=== PATIENT | female | born 1990 | race Caucasian/White ===

== ENCOUNTER 2016-12-12 09:14 | Emergency (ER) | payer BC ==
--- NOTE | ~2016-12-12 | CR181 ---
[facility] A Service of [facility] RADIOLOGY TEXT RESULTS PATIENT: PATRICIA WHATLEY LOCATION: [facility] : [birth year] UNIT #: [id number] AGE: [address]: Mony Rene APRN SEX: F ORDER DR: [id number] [facility] [address] [facility] [address]. [place], [place] [address] [id number] MR#: [id number] Acc #: [id number] NAME: PATRICIA WHATLEY. : 1990 SEX: F STUDY DATE/TIME: 12/12/2016 9:13 UNIT: [facility] ROOM: STUDY DESCRIPTION: CR Lumbar Spine 2 or 3 Views Attending Physician: Mony Rene A.P.R.N. Ordering Physician: Ed Marcelino Mcmahon M.D. Primary Care Physician: No Primary Care Physician MEDICAL IMAGING REPORT This report is preliminary unless electronic signature is present EXAM Lumbar spine series dated 12/12/2016. COMPARISON Lumbar spine series dated 12/16/2012. HISTORY Low back pain since yesterday after patient bent over to last picker stuff. FINDINGS 3 views of the lumbar spine were obtained. AP and lateral projections of the lumbar segment show good mineralization of both anterior and posterior elements. They are all anatomically normal without indication of fracture, dislocation, or malignant change of a sclerotic or lytic type. There is no congenital defect noted. The sacroiliac joints are normal. IMPRESSION Normal lumbar spine. Dictated by... Benjamin Moffett M.D. THIS IS AN ELECTRONICALLY VERIFIED REPORT Benjamin Moffett M.D. at 12/13/2016 2:04 PM CPR/tmw TD: 12/12/2016 09:59 JOB #: [id number] [facility] A Service of [facility] RADIOLOGY TEXT RESULTS PATIENT: PATRICIA WHATLEY LOCATION: [facility] : [birth year] UNIT #: [id number] AGE: [address]: Mony Rene APRN SEX: F ORDER DR: MEDICAL IMAGING REPORT Page 1 of 1 COPY
[~2016-12-12 09:14] MED LIST: ADVAIR 2501 DISK W/D PO; ALBUTEROL17 GM INH; AMOXICILLIN PO; BACTRIM DS TABL1 TAB PO; CLEOCIN PO; CORTISPORIN-TC10 ML OT; FLEXERIL PO; FLEXERIL10 MG PO; HYDROCODON-ACE1 EAC7 PO; IBUPROFEN PO; IBUPROFEN800 MG PO; KEFLEX PO; LORTAB 2.5/5001 TAB PO; LORTAB ELIXIR15 ML PO; MOTRIN600 MG PO; MUCINEX DM1 TAB.SR . PO; NO MEDICATIONS; PHENERGAN PO; PHENERGAN W/CO120 ML PO; PREDNISONE PO; ROBITUSSIN COUG1 CAP PO; SYMBICORT80 IH; TYLENOL #3 PO; VIBRAMYCIN100 M1 PO; VICODIN 5/1 TAB 5/50 PO; VICODIN 5/500 T1 TAB PO; VICODIN PO; VOLTAREN75 MG PO; [UNRECOGNIZED DRUG - OTHER] PO
== END 2016-12-12 10:38 | disposition home or self-care (01) ==
LOC: CED 09:14
DX: M54.5 Low back pain (principal); I10 Essential (primary) hypertension; J45.909 Unspecified asthma, uncomplicated; F17.210 Nicotine dependence, cigarettes, uncomplicated
CPT/HCPCS: 72100; 96372; 99283; J1885